=== PATIENT | male | born 1955 | race Caucasian/White ===

== ENCOUNTER 2018-05-08 07:31 | Inpatient (IN) | payer MEDICARE ==
[~2018-05-08] VITALS: Ht 170.2 cm; Wt 117.4 kg
[2018-05-08 08:28] LABS: BASOPHILS # (AUTO) 0.02 x10^3/uL (0-0.1); BASOPHILS % (AUTO) 0 % (0-1); EOSINOPHILS # (AUTO) 0.09 x10^3/uL (0-0.4); EOSINOPHILS % (AUTO) 1 % (1-7); LYMPHOCYTES # (AUTO) 0.54 x10^3/uL (1-3.4); LYMPHOCYTES % (AUTO) 5 % (22-44); MD NO; MEAN CORPUSCULAR HEMOGLOBIN 30.1 pg (27.5-34.5); MEAN CORPUSCULAR HGB CONC 33.8 g/dL (33.2-36.2); MEAN CORPUSCULAR VOLUME 88.9 fL (81-97); MEAN PLATELET VOLUME 9.5 fL (7.4-10.4); MONOCYTES # (AUTO) 0.26 x10^3/uL (0.2-0.8); MONOCYTES % (AUTO) 2 % (2-9); NEUTROPHILS # (AUTO) 9.89 x10^3/uL (1.8-6.8); NEUTROPHILS % (AUTO) 92 % (42-75); PLATELET COUNT 202 x10^3/uL (130-400); RED BLOOD COUNT 4.87 x10^6/uL (4.38-5.82); RED CELL DISTRIBUTION WIDTH 13.1 % (9.4-14.8)
[2018-05-08] MEDS ORDERED: PLEASE ENTER WEIGHT MC SCH (08:30)
[2018-05-08] MEDS ORDERED: NITROGLYCERIN SINGLE TAB 0.4 MG SL ONE ×2 (08:30→08:31)
[2018-05-08] MEDS ORDERED: SODIUM CHLORIDE FLUSH 10ML SYR IVF ONE (08:30)
[2018-05-08 08:39] LABS: ALANINE AMINOTRANSFERASE 46 U/L (12-78); ALBUMIN 3.8 g/dL (3.4-5.0); ANION GAP 5 mmol/L (5-15); CALCIUM 8.9 mg/dL (8.5-10.1); CHLORIDE 106 mmol/L (98-107); CREATININE 1.06 mg/dL (0.7-1.3)
[2018-05-08 08:44] LABS: ALKALINE PHOSPHATASE 50 U/L (45-117); BILIRUBIN,TOTAL 0.6 mg/dL (0.2-1.0); TOTAL PROTEIN 7.6 g/dL (6.4-8.2)
--- NOTE | 2018-05-08 08:58 | NUR ---
Called pharmacy per Heparin Protocol. Per pharmacy, "Patient's adjusted weight is 86.3 kg. Since patient is ACS/STEMI first bolous will be 4,000 units, first drip dose will be 1,000 units at 22 mL/hr."
--- NOTE | 2018-05-08 08:58 | NUR ---
Recieved report from BALWINDER Baum. All questions answered. Assuming care of pt.
[2018-05-08] MEDS ORDERED: HEPARIN 5,000 UNITS/ML, 1ML IV ONE ×2 (09:00)
[2018-05-08] MEDS ORDERED: HEPARIN 5,000 UNITS/ML, 1ML IV PRN ×2 (09:00)
[2018-05-08] MEDS ORDERED: HEPARIN 25,000 UNITS/500ML PMX 500 ML IV PRN ×2 (09:00)
[2018-05-08] MEDS ORDERED: HEPARIN 5,000 UNITS/ML, 1ML ONE (09:02)
[2018-05-08] MEDS ORDERED: HEPARIN 25,000 UNITS/500ML PMX 500 ML ONE (09:05)
[2018-05-08] MEDS ORDERED: NITROGLYCERIN 0.4 MG BOTTLE (25 TABS) SL PRN (09:30)
[2018-05-08] MEDS ORDERED: NITROGLYCERIN 0.4 MG/SPRAY SL PRN (09:30)
[2018-05-08] MEDS ORDERED: morphine SULFATE 10 MG/ML, 1ML IV PRN (09:30)
[2018-05-08] MEDS ORDERED: ONDANSETRON 2MG/ML, 2ML IVPush ONE (09:30)
[2018-05-08] MEDS ORDERED: ONDANSETRON 2MG/ML, 2ML ONE ×3 (09:31→13:37)
[2018-05-08] MEDS ORDERED: OMEP20TA62 PO (09:43)
--- NOTE | 2018-05-08 09:47 | NUR ---
LATE NOTE ENTRY FOR 0916: Provided medication per EMAR. Pt vomitted one time. Pt states, "After having the nitro I started to feel nauseated." Provided anti-nausea medication per EMAR. Pt appreciative. Pt connected to all monitors. All safety measures in place. NADN. Pt denies pain at this time. Pt is AOX4, skin is pink, warm, and dry, and pt has unlabored respirations equal bilaterally. Pt states, "around three this morning I felt nauseated and sweaty."
[2018-05-08 10:58] LABS: CHOL/HDL RATIO 3.7; CHOLESTEROL, TOTAL 189 mg/dL (140-239); HDL CHOL % 27 % (26-37); HDL CHOLESTEROL (DIRECT) 51 mg/dL (40-60); LDL CHOLESTEROL,CALCULATED 118 mg/dL (54-169); LDL/HDL RATIO 2.3 (0.5-3.0); TRIGLYCERIDES 99 mg/dL (50-200); VLDL CHOLESTEROL 20 mg/dL (0-25)
[2018-05-08] MEDS ORDERED: POLYETHYLENE GLYCOL 17 GM PACKET PO PRN (11:00)
[2018-05-08] MEDS ORDERED: ONDANSETRON ODT 4 MG PO PRN (11:00)
[2018-05-08] MEDS ORDERED: ONDANSETRON 2MG/ML, 2ML IVPush PRN ×3 (11:00→17:00)
[2018-05-08] MEDS ORDERED: LABETALOL 5MG/ML, 20ML IVPush PRN (11:00)
--- NOTE | 2018-05-08 11:07 | NUR ---
Pt transported on rney to pharmacy laboratory technician by pharmacy laboratory technician RN's. Pt left with all personal belongings. PIV medications infusing upon transfer from ED.
[2018-05-08] MEDS ORDERED: TICAGRELOR 90 MG TABLET ONE (11:54)
[2018-05-08] MEDS ORDERED: MIDAZOLAM 1 MG/ML, 5ML ONE (11:54)
[2018-05-08] MEDS ORDERED: FENTANYL PF 100 MCG/2ML ONE (11:54)
[2018-05-08] MEDS ORDERED: NITROGLYCERIN 5 MG/ML, 10ML ONE (11:54)
[2018-05-08] MEDS ORDERED: VERAPAMIL 2.5 MG/ML, 2ML ONE (11:54)
[2018-05-08] MEDS ORDERED: BIVALIRUDIN 250 MG ONE (11:55)
[2018-05-08] MEDS ORDERED: LIDOCAINE-MPF 1%, 5ML ONE (11:55)
[2018-05-08 12:50] LABS: HEMOGLOBIN A1C 5.8 % (4.2-6.3)
[2018-05-08] MEDS: CLOPIDOGREL 75 MG TABLET PO SCH (13:00)
[2018-05-08] MEDS: ASPIRIN 81 MG TABLET EC PO SCH (13:00)
[2018-05-08] MEDS: D5%-0.45% NACL 1,000 ML IV SCH (14:30)
[2018-05-08 15:20] VITALS: BP 125/77
[2018-05-08] MEDS ORDERED: PROMETHAZINE 25 MG/ML, 1ML IM ONE (17:00)
[2018-05-08] MEDS: PANTOPRAZOLE 40 MG IV IVPush SCH (17:17)
[2018-05-08 20:30] VITALS: BP 113/69
[2018-05-08] MEDS: SODIUM CHLORIDE FLUSH 10ML SYR IVF SCH (22:59)
[2018-05-08] MEDS: HEPARIN 5,000 UNITS/ML, 1ML SQ SCH (23:00)
[2018-05-08] MEDS: ATORVASTATIN 40 MG TABLET PO SCH (23:00)
[2018-05-08] MEDS ORDERED: TEMAZEPAM 15 MG CAPSULE PO PRN (23:30)
[2018-05-09] MEDS: D5%-0.45% NACL 1,000 ML IV SCH (03:32)
[2018-05-09 03:37] VITALS: BP 120/78
[2018-05-09] MEDS ORDERED: GUAIFENESIN/DM 200-20MG, 10ML UDC PO PRN (04:00)
[2018-05-09] MEDS: PANTOPRAZOLE 40 MG IV IVPush SCH ×2 (04:14→15:54)
[2018-05-09] MEDS ORDERED: ASPIRIN 325 MG TABLET EC PO SCH (06:00)
[2018-05-09 06:03] LABS: BASOPHILS # (AUTO) 0.02 x10^3/uL (0-0.1); BASOPHILS % (AUTO) 0 % (0-1); EOSINOPHILS # (AUTO) 0.12 x10^3/uL (0-0.4); EOSINOPHILS % (AUTO) 1 % (1-7); LYMPHOCYTES # (AUTO) 0.75 x10^3/uL (1-3.4); LYMPHOCYTES % (AUTO) 7 % (22-44); MD NO; MEAN CORPUSCULAR HEMOGLOBIN 30.5 pg (27.5-34.5); MEAN CORPUSCULAR HGB CONC 34.6 g/dL (33.2-36.2); MEAN PLATELET VOLUME 10.3 fL (7.4-10.4); MONOCYTES # (AUTO) 0.55 x10^3/uL (0.2-0.8); MONOCYTES % (AUTO) 5 % (2-9); NEUTROPHILS # (AUTO) 9.74 x10^3/uL (1.8-6.8); NEUTROPHILS % (AUTO) 87 % (42-75); PLATELET COUNT 172 x10^3/uL (130-400); RED CELL DISTRIBUTION WIDTH 13.1 % (9.4-14.8)
[2018-05-09 06:40] LABS: CHLORIDE 105 mmol/L (98-107)
[2018-05-09 07:14] LABS: ALANINE AMINOTRANSFERASE 57 U/L (12-78); ALBUMIN 3.2 g/dL (3.4-5.0); ALKALINE PHOSPHATASE 42 U/L (45-117); ANION GAP 10 mmol/L (5-15); CALCIUM 8.6 mg/dL (8.5-10.1); CREATININE 0.93 mg/dL (0.7-1.3); TOTAL PROTEIN 6.7 g/dL (6.4-8.2)
[2018-05-09 07:23] VITALS: BP 130/70
[2018-05-09] MEDS ORDERED: PANTOPROZOLE 40MG TABLET PO SCH (07:30)
[2018-05-09] MEDS: HEPARIN 5,000 UNITS/ML, 1ML SQ SCH ×3 (08:40→22:14)
[2018-05-09] MEDS: CLOPIDOGREL 75 MG TABLET PO SCH (08:41)
[2018-05-09] MEDS: ASPIRIN 81 MG TABLET EC PO SCH (08:41)
[2018-05-09] MEDS: SODIUM CHLORIDE FLUSH 10ML SYR IVF SCH ×2 (08:42→20:25)
[2018-05-09] MEDS ORDERED: SENNA/DOCUSATE TABLET PO SCH (09:00)
[2018-05-09] MEDS ORDERED: METOPROLOL TARTRATE 25 MG TABLET PO SCH (09:00)
[2018-05-09 12:34] VITALS: BP 118/80
[2018-05-09] MEDS ORDERED: ZOLPIDEM 10MG TABLET PO PRN (14:30)
[2018-05-09] MEDS ORDERED: ONDANSETRON 2MG/ML, 2ML IVPush PRN (14:30)
[2018-05-09] MEDS: PROMETHAZINE 25MG TABLET PO PRN ×2 (15:49→20:26)
[2018-05-09 18:34] VITALS: BP 143/83
[2018-05-09] MEDS: ATORVASTATIN 40 MG TABLET PO SCH (20:25)
[2018-05-09] MEDS ORDERED: EPINEPHRINE SYRINGE 0.1 MG/ML, 10ML ONE ×2 (21:00→22:30)
[2018-05-09] MEDS ORDERED: ROCURONIUM 10MG/ML,5ML ONE (22:30)
[2018-05-10] MEDS ORDERED: CODE BLUE RESPONSE XX ONE (00:30)
== END 2018-05-09 22:51 | disposition expired ==
LOC: ED 08:39 → EDIP 09:11 → 5SO 15:10
PROVIDERS: ADMIT Internal Medicine Cardiovascular Disease; ATTEND Internal Medicine Cardiovascular Disease
PROC: 4A023N7 Measurement of Cardiac Sampling and Pressure, Left Heart, Percutaneous Approach (ICD-10-PCS; principal; 2018-05-08)
PROC: B2111ZZ Fluoroscopy of Multiple Coronary Arteries using Low Osmolar Contrast (ICD-10-PCS; 2018-05-08)
PROC: B2151ZZ Fluoroscopy of Left Heart using Low Osmolar Contrast (ICD-10-PCS; 2018-05-08)
PROC: 5A12012 Performance of Cardiac Output, Single, Manual (ICD-10-PCS; 2018-05-08)
DX: I21.4 Non-ST elevation (NSTEMI) myocardial infarction (principal); Z68.41 Body mass index [BMI] 40.0-44.9, adult; E66.9 Obesity, unspecified; I25.10 Atherosclerotic heart disease of native coronary artery without angina pectoris; E78.5 Hyperlipidemia, unspecified; Z66 Do not resuscitate; K21.9 Gastro-esophageal reflux disease without esophagitis; Z79.02 Long term (current) use of antithrombotics/antiplatelets; Z79.82 Long term (current) use of aspirin; Z82.49 Family history of ischemic heart disease and other diseases of the circulatory system; Z87.891 Personal history of nicotine dependence
CPT/HCPCS: 0399T; 36415; 71045; 74018; 80053; 80061; 83036; 83690; 83735; 84100; 84484; 85025; 85379; 85520; 92950; 93005; 93306; 96365; 96366; 96375; 96376; 99285; G0378; J0583; J1644; J2250; J2405; J2550; J3010; Q0169; C9113